=== PATIENT | male | born 1975 ===

== ENCOUNTER 2017-12-10 09:45 | Emergency (ER) | payer SELFPAY ==
[~2017-12-10] VITALS: Ht 188 cm; Wt 104.5 kg
[~2017-12-10 09:45] MED LIST: IBUP1TAB7 PO
[2017-12-10 09:52] VITALS: BP 175/98; PULSE 106; RESP 18; TEMP 98; O2SAT 98
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
[2017-12-10] MEDS ORDERED: IBUP1TAB7 PO (12:11)
== END 2017-12-10 12:42 | disposition home or self-care (01) ==
LOC: NEPD 09:45
DX: S82.092A Other fracture of left patella, initial encounter for closed fracture (principal); V81.89XA Occupant of railway train or railway vehicle injured due to other specified railway accident, initial encounter; Y93.39 Activity, other involving climbing, rappelling and jumping off; Z72.0 Tobacco use
CPT/HCPCS: 73564; 99283; E0113; L1830